=== PATIENT | female | born 1965 | race Caucasian/White ===

== ENCOUNTER 2016-06-26 12:34 | Emergency (ER) | payer BC ==
[2016-06-26 12:46] VITALS: TEMP 97.8; BMI 27.4
[2016-06-26] MEDS ORDERED: KETOROLAC TROMETHAMINE 30 MG/1 ML VIAL IVPUSH ONE (12:57)
[2016-06-26] MEDS ORDERED: SODIUM CHLORIDE 1,000 ML IV STA ×2 (12:57→15:13)
[2016-06-26] MEDS ORDERED: METOCLOPRAMIDE HCL INJECTION 10 MG/2 ML VIAL IVPB ONE (12:57)
--- NOTE | 2016-06-26 12:57 | PDOC ---
History of Present Illness <Faustino Winn - Last Filed: 06/26/16 14:21> - General History Source: Patient, Old Records Exam Limitations: No Limitations - History of Present Illness Initial Comments: 06/26/16 13:30 Ptient is a 50 y/o female with h/o chronic headaches, HTN and breast CA who presents to the ED with c/o worsening headaches since she was accidentally struck in the side of the headache with a football while at work 3 weeks ago. The patient states that she had no LOC at the time and did not seek medical attention. The headache started immediately after being struck and has increased in frequency. The patient came to the ED today because she took NSAIDs at home but there was no pain relief. She denies photophobia, change in vision or hearing. The aptient denies taking anti-platelet or anti-coagulant therapeutic medications. <Aileen Erickson - Last Filed: 06/26/16 16:45> - General Chief Complaint: Headache Stated Complaint: HEADACHE Time Seen by Provider: 06/26/16 12:36 Past History <Faustino Winn - Last Filed: 06/26/16 14:21> - Past Medical History Anemia: No Asthma: Yes (occasional) Cancer: Yes (BREAST -RIGHT) Cardiac Disorders: No CVA: No COPD: No CHF: No Dementia: No Diabetes: No GI Disorders: Yes (ACID REFLUX) Disorders: No HTN: Yes Hypercholesterolemia: No Liver Disease: No Seizures: No Thyroid Disease: No - Surgical History Abdominal Surgery: No Appendectomy: No Cardiac Surgery: No Cholecystectomy: No Lung Surgery: No Neurologic Surgery: No Orthopedic Surgery: No - Immunization History Immunization Up to Date: No - Psycho/Social/Smoking Cessation Hx Anxiety: No Suicidal Ideation: No Smoking History: Never smoked Have you smoked in the past 12 months: No Information on smoking cessation initiated: No Hx Alcohol Use: No Drug/Substance Use Hx: No Substance Use Type: None Hx Substance Use Treatment: No <Aileen Erickson - Last Filed: 06/26/16 16:45> - Past Medical History Allergies/Adverse Reactions: Allergies Allergy/AdvReac Type Severity Reaction Status Date / Time No Known Drug Allergies Allergy Verified 06/26/16 12:36 Home Medications: Ambulatory Orders Amlodipine Besylate [Norvasc -] 5 mg PO DAILY 07/13/14 Omeprazole [Prilosec] 20 mg PO DAILY 07/13/14 Valsartan [Diovan] 320 mg PO DAILY 07/13/14 Metformin HCl 1,000 mg PO DAILY 06/26/16 Review of Systems - Review of Systems Constitutional: No: Symptoms Reported HEENTM: No: Symptoms Reported Respiratory: No: Symptoms reported Cardiac (ROS): No: Symptoms Reported : No: Symptoms Reported Musculoskeletal: No: Symptoms Reported Integumentary: No: Symptoms Reported Neurological: Yes: Headache. No: Ataxia, Dizziness <Nora Ericksony - Last Filed: 06/26/16 16:45> *Physical Exam - Vital Signs Last Vital Signs Temp Pulse Resp BP Pulse Ox 97.8 F 85 18 158/85 98 06/26/16 12:35 06/26/16 12:35 06/26/16 12:35 06/26/16 12:35 06/26/16 12:35 <Faustino Winn - Last Filed: 06/26/16 14:21> - Vital Signs Last Vital Signs Temp Pulse Resp BP Pulse Ox 97.8 F 85 18 158/85 98 06/26/16 12:35 06/26/16 12:35 06/26/16 12:35 06/26/16 12:35 06/26/16 12:35 - Physical Exam Comments: 06/26/16 13:35 GENERAL: Well developed, well nourished. Awake and alert. No acute distress. HEENT: Normocephalic, atraumatic. PERRLA, EOMI. No conjunctival pallor. Sclera are non- icteric. Moist mucous membranes. Oropharynx is clear. NECK: Supple. Full ROM. No JVD. No lymphadenopathy. CARDIOVASCULAR: Regular rate and rhythm. No murmurs, rubs, or gallops. Distal pulses are 2+ and symmetric. PULMONARY: No evidence of respiratory distress. Lungs clear to auscultation bilaterally. No wheezing, rales or rhonchi. ABDOMINAL: Soft. Non-tender. Non-distended. No rebound or guarding. No organomegaly. Normoactive bowel sounds. MUSCULOSKELETAL Normal range of motion at all joints. No bony deformities or tenderness. No CVA tenderness. EXTREMITIES: No cyanosis. No clubbing. No edema. No calf tenderness. SKIN: Warm and dry. Normal capillary refill. No rashes. No jaundice. NEUROLOGICAL: Alert, awake, appropriate. Cranial nerves 2-12 intact. Grossly non-focal exam. Motor and sensory exams are normal. PSYCHIATRIC: Cooperative. Good eye contact. Appropriate mood and affect. <Aileen Erickson - Last Filed: 06/26/16 16:45> ED Treatment Course - LABORATORY CBC & Chemistry Diagram: 06/26/16 13:15 06/26/16 13:15 - ADDITIONAL ORDERS Additional order review: 06/26/16 13:15 RBC 4.70 MCV 88.1 MCHC 32.8 RDW 12.6 MPV 6.9 L Neutrophils % 67.0 Lymphocytes % 26.1 Monocytes % 5.1 Eosinophils % 1.4 Basophils % 0.4 - RADIOLOGY Radiograph Interpretation: 06/26/16 14:18 EXAM: Head CT INTERPRETED BY: Dr. Shah REVIEWED BY: Dr. Erickson IMPRESSION: No evidence of acute intracranial hemorrhage, edema, midline shift, mass effect, or skull fracture. There is no CT evidence of acute territorial infarction. - Medications Given in the ED: ED Medications Discontinued Medications Generic Name Dose Route Start Last Admin Trade Name Freq PRN Reason Stop Dose Admin Sodium Chloride 1,000 mls @ 1,000 mls/hr 06/26/16 12:57 06/26/16 13:22 Normal Saline - IV 06/26/16 13:56 1,000 mls/hr ASDIR STA Administration Ketorolac Tromethamine 30 mg 06/26/16 12:57 06/26/16 13:25 Toradol Injection - IVPUSH 06/26/16 12:58 30 mg ONCE ONE Administration Metoclopramide HCl 10 mg 06/26/16 12:57 06/26/16 13:29 Reglan Injection - IVPB 06/26/16 12:58 10 mg ONCE ONE Administration <Faustino Winn - Last Filed: 06/26/16 14:21> - LABORATORY CBC & Chemistry Diagram: 06/26/16 13:15 06/26/16 13:15 <Aileen Erickson - Last Filed: 06/26/16 16:45> Medical Decision Making - Medical Decision Making 06/26/16 13:35 50 y/o female with h/o HTN, breast CA and chronic headaches with c/o worsening headache after being struck in the head 3 weeks ago. DDx includes but is not limited to: TBI, concussion, post-concussive syndrome, migraines, mass lesion, dehydration, electrolyte abnormality, toxic/metabolic derangement. Plan: 1. Labs 2. CT head 3. Urine analysis 4. IVF for hydration 5. Pain management 6. Observe and re-evaluate 06/26/16 16:42 Addendum: The labs were reviewed and noted in the EMR. Of note her glucose was in the 300 range. I addressed this with the patient and she says that she is recently been diagnosed with diabetes and been started on metformin. This is information that she did not share with me when I took the initial history of present illness. I gave for IV fluid hydration and the patient is feeling improved. I have discussed the results of the lab studies as well as the negative head CT with the patient. I have advised the patient that she needs to follow-up with her primary care physician this week to get her diabetes medications adjusted. I've advised her that she may take NSAIDs as needed for the headaches and to return to the emergency department if her symptoms persist , worsen, or new symptoms arise. <Aileen Erickson - Last Filed: 06/26/16 16:45> *DC/Admit/Observation/Transfer <Faustino Winn - Last Filed: 06/26/16 14:21> - Discharge Dispostion Admit: No <Aileen Erickson - Last Filed: 06/26/16 16:45> Diagnosis at time of Disposition: Headache, Uncontrolled diabetes mellitus - Discharge Dispostion Disposition: HOME Condition at time of disposition: Stable - Patient Instructions Printed Discharge Instructions: DI for Headache, Type 2 Diabetes Additional Instructions: You have had a CAT scan of your head which is negative for any acute intracranial pathology. Of note, your glucose levels are elevated consistent with diabetes that is poorly controlled. Please see her primary care physician within the next 3 days for medication adjustment. Return to the emergency department if your symptoms persist, worsen, or new symptoms arise.
[2016-06-26] MEDS ORDERED: KETOROLAC TROMETHAMINE 30 MG/1 ML VIAL ONE (13:12)
[2016-06-26 13:47] LABS: BASOPHIL 0.4 % (0-2.0); EOSINOPHIL 1.4 % (0-4.5); MCH 28.9 pg (25.7-33.7); MCHC 32.8 g/dl (32.0-36.0); MEAN CELL VOLUME 88.1 fl (80-96); MEAN PLT VOLUME 6.9 fl (7.5-11.1); PLATELET COUNT 418 K/MM3 (134-434); RDW 12.6 % (11.6-15.6); WHITE BLOOD COUNT 7.8 K/mm3 (4.0-10.0)
[2016-06-26 14:02] LABS: CALCIUM 8.6 mg/dl (8.4-10.2); CREATININE 0.8 mg/dl (0.6-1.3); MAGNESIUM 1.7 mg/dL (1.8-2.4); PHOSPHOROUS 4.7 mg/dl (2.5-4.6)
[2016-06-26] MEDS ORDERED: HEMOQUE TEST 1 EACH EACH ONE ×2 (15:09→16:34)
[2016-06-26 16:49] VITALS: BP 147/88; PULSE 78
== END 2016-06-26 16:50 | disposition home or self-care (01) ==
LOC: FER 12:34 → SUPCPDRO 12:34 → FER 16:50
PROC: 3E0333Z Introduction of Anti-inflammatory into Peripheral Vein, Percutaneous Approach (ICD-10-PCS; principal; 2016-06-26)
PROC: 3E033GC Introduction of Other Therapeutic Substance into Peripheral Vein, Percutaneous Approach (ICD-10-PCS; 2016-06-26)
PROC: 3E0337Z Introduction of Electrolytic and Water Balance Substance into Peripheral Vein, Percutaneous Approach (ICD-10-PCS; 2016-06-26)
DX: E11.65 Type 2 diabetes mellitus with hyperglycemia (principal); R51 Headache; Z79.84 Long term (current) use of oral hypoglycemic drugs; I10 Essential (primary) hypertension; Z85.3 Personal history of malignant neoplasm of breast; K21.9 Gastro-esophageal reflux disease without esophagitis
CPT/HCPCS: 36415; 70450-TC; 80048; 83735; 84100; 85025; 99284-25

== ENCOUNTER 2017-03-30 07:03 | Day surgery (SDC) | payer BC ==
[2017-03-29 16:10] VITALS: BMI 27.4
[2017-03-30] MEDS ORDERED: SUCCINYLCHOLINE CHLORIDE 200 MG/10 ML VIAL ONE (09:28)
[2017-03-30] MEDS ORDERED: PROPOFOL 20 ML ONE ×4 (09:28→11:02)
[2017-03-30] MEDS ORDERED: MIDAZOLAM HCL 2 MG/2 ML SINGLE DOSE VIAL ONE (09:28)
[2017-03-30] MEDS ORDERED: LIDOCAINE HCL 1%, 10 MG/ML (20ML VIAL) ONE (09:49)
[2017-03-30] MEDS ORDERED: ONDANSETRON 4 MG/2 ML VIAL ONE (10:28)
[2017-03-30] MEDS ORDERED: ceFAZolin SODIUM 1 GM VIAL ONE (10:28)
[2017-03-30] MEDS ORDERED: ceFAZolin SODIUM 1 GM VIAL IVPB ONE (10:30)
[2017-03-30] MEDS ORDERED: LIDOCAINE 1% P/F 10 MG/ML VIAL INF ONE (10:35)
[2017-03-30] MEDS ORDERED: ONDANSETRON 4 MG/2 ML VIAL IVPUSH PRN (11:12)
[2017-03-30] MEDS ORDERED: oxyCODONE HCL 5 MG TABLET PO PRN (11:12)
[2017-03-30] MEDS ORDERED: LACTATED RINGERS SOLUTION 1,000 ML IV SCH (11:15)
--- NOTE | 2017-03-30 11:29 | OP ---
DATE OF OPERATION: 03/30/2017 PREOPERATIVE DIAGNOSIS: Left breast intraductal papilloma x2. POSTOPERATIVE DIAGNOSIS: Left breast intraductal papilloma x2. PROCEDURE: Left breast wide localized excision. SURGEON: Steffi Melendez MD ANESTHESIA: Local, IV sedation. ESTIMATED BLOOD LOSS: Minimal. COMPLICATIONS: None. This is a sterile procedure. INDICATIONS FOR PROCEDURE: Patient had presented to me with a screening mammogram that noted an abnormality in the left 7 o'clock location. On ultrasound, she had a nodule separate from this area. Both these areas were biopsied by the radiologist at Imaging and pathology on both showed an intraductal papilloma. My recommendation was an excision of this area. The procedure was discussed with her and she understood. PROCEDURE IN DETAIL: Patient brought to [facility]. Taken to the breast senior loss control specialist where a wire was used to localize the 2 clips in the lower inner left breast. She was then brought up to the operating room. After IV sedation and IV antibiotics, the left breast was prepped and draped in the usual sterile fashion. The area in the lower inner and retroareolar left breast was anesthetized with 1% lidocaine without epinephrine. A periareolar incision was made in the lower inner left breast and the wire was used as a guide to get down to the area of interest. This was excised en bloc and sent as a left breast excision of mass x2 for a specimen radiograph. The specimen radiograph showed both the clips and wire to be intact within the specimen. This was then sent to Pathology for permanent section. Hemostasis assured with electrocautery. The parenchyma was approximated with interrupted 2-0 Vicryl. Skin approximated with interrupted 3-0 Vicryl and running 4-0 Prolene. A sterile dressing with Tegaderm, 4 x4's applied. She tolerated procedure well. Was taken to recovery in good condition. Telma [id number]
[2017-03-30 13:12] VITALS: TEMP 98.4
[2017-03-30] MEDS ORDERED: oxyCODONE HCL 5 MG TABLET ONE (13:22)
[2017-03-30 14:55] VITALS: BP 152/83; PULSE 92
--- NOTE | 2017-04-05 10:30 | PATH ---
Surgical Pathology Report Patient Name: VENICE OLIVIA [facility]. Rec. #: [id number] /Age/Gender: 1965 (Age: 51) / F Account: [id number] Location: [facility] Taken: 03/30/2017 Received: 03/30/2017 Reported: 04/05/2017 Physicians: Steffi Melendez M.D. Specimen(s) Received LEFT BREAST EXCISION OF MASS X2 Clinical History Left breast intraductal papilloma 7:00 on needle biopsy Final Diagnosis LEFT BREAST, WIDE EXCISION WITH A WIRE LOCALIZATION: FOCAL ATYPICAL DUCTAL HYPERPLASIA (ADH) AND SCLEROSING ADENOSIS ARISING IN A BACKGROUND OF FIBROCYSTIC CHANGES INCLUDING USUAL DUCTAL HYPERPLASIA (UDH), STROMAL FIBROSIS, DUCTAL DILATATION, AND CYSTIC APOCRINE METAPLASIA. CHANGES CONSISTENT WITH PRIOR BIOPSY SITE PRESENT. NO DEFINITE RESIDUAL PAPILLOMA IDENTIFIED NEAR AREA OF BIOPSY SITE. NO CARCINOMA IDENTIFIED. Comment: Also see prior specimens [id number] and [id number]. Electronically Signed Can Buitrago M.D. Gross Description Received fresh on an AccuGrid labeled "left breast excision of mass," is a 5.0 x 4.0 x 2.1 cm irregular, unoriented portion of fibroadipose tissue with a needle localization wire present. There is no skin or nipple present. The specimen is inked black and serially sectioned. Sectioning reveals a meyer metallic biopsy clip surrounded by firm fibrous tissue. No definitive mass is identified. [employer] sections are sequentially submitted in 14 cassettes with the biopsy clip in cassette 8 (one bisected section each in cassettes 8/9, / and /13). Total formalin fixation time: Approximately 6 hours 03/30/201703/30/2017
== END 2017-03-30 14:59 | disposition home or self-care (01) ==
LOC: JASU-SURG 07:03
PROVIDERS: ATTEND Surgery
PROC: 0HBU3ZX Excision of Left Breast, Percutaneous Approach, Diagnostic (ICD-10-PCS; 2017-03-30)
PROC: 0HBU0ZX Excision of Left Breast, Open Approach, Diagnostic (ICD-10-PCS; principal; 2017-03-30 10:00)
DX: D24.2 Benign neoplasm of left breast (principal)
CPT/HCPCS: 19281; 88307-TC; 94760

== ENCOUNTER → 2018-06-24 | Day surgery (SDC) | payer BC ==
--- NOTE | 2018-06-25 13:51 | PATH ---
Cytology Non-Gynecological Report Patient Name: VENICE OLIVIA [facility]. Rec. #: [id number] /Age/Gender: 1965 (Age: 52) / F Account: [id number] Location: RADIOLOGY INTER Taken: 06/24/2018 Received: 06/24/2018 Reported: 06/25/2018 Physicians: Telma Machuca M.D. Specimen(s) Received THYROID FNA RIGHT Clinical History Right thyroid nodule, 1.93 x 1.73 x 1.72 cm Final Diagnosis THYROID, RIGHT, FINE NEEDLE ASPIRATION: UNSATISFACTORY FOR EVALUATION. BETHESDA CLASS I: CYSTIC THYROID LESION WITH MACROPHAGES. MANY MACROPHAGES IN A BACKGROUND OF THIN COLLOID PRESENT. NO FOLLICULAR CELL CLUSTERS IDENTIFIED. SEE COMMENT. Comment: The specimen has insufficient follicular cell clusters and/or colloid; and suboptimal for complete cytopathologic evaluation according to [facility] [place] System for Reporting Thyroid FNA. If the nodule has worrisome ultrasound imaging properties, suggest repeat FNA, as warranted. Electronically Signed Magui Dallas M.D. Gross Description Received are eight direct smears, four of which are air-dried and Diff-Quik stained, and four of which are alcohol fixed and Pap stained. Also received is 20 ml of bloody formalin from which one cellblock is prepared.
== END | disposition home or self-care (01) ==
LOC: JRADIR 09:09
PROVIDERS: ATTEND Internal Medicine Endocrinology, Diabetes & Metabolism
PROC: 0G9H3ZX Drainage of Right Thyroid Gland Lobe, Percutaneous Approach, Diagnostic (ICD-10-PCS; principal; 2018-06-24)
DX: E04.1 Nontoxic single thyroid nodule (principal)
CPT/HCPCS: 10005; 76942; 88173; 88305-TC

== ENCOUNTER 2018-07-25 17:04 | Emergency (ER) | payer BC ==
--- NOTE | 2018-07-25 17:05 | PDOC ---
History of Present Illness <Sharmin Vieira - Last Filed: 07/25/18 17:04> <Yimi Melchor - Last Filed: 07/25/18 19:00> - General Chief Complaint: Chest Pain Stated Complaint: HTN,CHEST PAIN, HEADACHE Time Seen by Provider: 07/25/18 17:04 Past History - Past Medical History Anemia: No Asthma: Yes (occasional) Cancer: Yes (BREAST -RIGHT) Cardiac Disorders: No CVA: No COPD: No CHF: No Dementia: No Diabetes: Yes GI Disorders: Yes (ACID REFLUX) Disorders: No HTN: Yes Hypercholesterolemia: No Liver Disease: No Seizures: No Thyroid Disease: No - Surgical History Abdominal Surgery: No Appendectomy: No Cardiac Surgery: No Cholecystectomy: No Lung Surgery: No Neurologic Surgery: No Orthopedic Surgery: No - Immunization History Immunization Up to Date: No - Suicide/Smoking/Psychosocial Hx Smoking History: Never smoked Have you smoked in the past 12 months: No Hx Alcohol Use: No Drug/Substance Use Hx: No Substance Use Type: None Hx Substance Use Treatment: No <Sharmin Vieira - Last Filed: 07/25/18 17:04> <Yimi Melchor - Last Filed: 07/25/18 19:00> - Past Medical History Allergies/Adverse Reactions: Allergies Allergy/AdvReac Type Severity Reaction Status Date / Time No Known Drug Allergies Allergy Verified 07/25/18 17:06 Home Medications: Ambulatory Orders Amlodipine Besylate [Norvasc -] 5 mg PO DAILY 07/13/14 Omeprazole [Prilosec] 40 mg PO DAILY 07/13/14 metFORMIN HCL [Metformin HCl] 1,000 mg PO BID 06/26/16 Valsartan/Hydrochlorothiazide [Valsartan-Hctz 320-25 mg Tab] 1 each PO DAILY 06/03 Semaglutide [Ozempic] 0.5 mg SQ TU 01/01/18 *Physical Exam - Vital Signs Last Vital Signs Temp Pulse Resp BP Pulse Ox 97.7 F 86 17 156/106 H 98 07/25/18 17:04 07/25/18 17:04 07/25/18 17:04 07/25/18 17:04 07/25/18 17:04 - Physical Exam Comments: 07/25/18 18:59 Constitutional: Awake, alert, oriented. No acute distress. Head: Normocephalic. Atraumatic Eyes: PERRL. EOMI. Conjunctivae are not pale. ENT: Mucous membranes are moist and intact. Posterior pharynx without exudates or erythema. Uvula midline. Neck: Supple. Full ROM. No lymphadenopathy. Cardiovascular: Regular rate. Regular rhythm. S1, S2 regular. Distal pulses are 2+ and symmetric. Pulmonary/Chest: No evidence of respiratory distress. Clear to auscultation bilaterally No wheezing, rales or rhonchi. Abdominal: Soft and non-distended. There is no tenderness. No rebound, guarding or rigidity. No organomegaly. No palpable masses. Good bowel sounds. Back: No CVA tenderness. Musculoskeletal: No edema. No cyanosis. No clubbing. Full range of motion in all extremities. Nocalf tenderness. Radial/pedal pulses are intact and 2+ bilaterally Skin: Skin is warm and dry. No petechiae. No purpura. Neurological: Alert and oriented to person, place, and time. Cranial nerves II -XII are grossly intact. Normal speech. Strength is grossly symmetric. No sensory deficits. Psychiatric: Good eye contact. Normal interaction, affect and behavior. <Yimi Melchor - Last Filed: 07/25/18 19:00> Moderate Sedation - Procedure Monitoring Vital Signs: Procedure Monitoring Vital Signs Temperature 97.7 F 07/25/18 17:04 Pulse Rate 86 07/25/18 17:04 Respiratory Rate 17 07/25/18 17:04 Blood Pressure 156/106 H 07/25/18 17:04 O2 Sat by Pulse Oximetry (%) 98 07/25/18 17:04 <Yimi Melchor - Last Filed: 07/25/18 19:00> ED Treatment Course - LABORATORY CBC & Chemistry Diagram: 07/25/18 17:43 07/25/18 17:43 - ADDITIONAL ORDERS Additional order review: Laboratory Results 07/25/18 07/25/18 17:43 17:43 Sodium 136 Potassium 3.5 Chloride 100 Carbon Dioxide 28 Anion Gap 8 BUN 18 Creatinine 0.6 Creat Clearance w eGFR > 60 Random Glucose 196 H Calcium 9.7 Total Bilirubin 0.5 AST 22 ALT 26 Alkaline Phosphatase 17 L Creatine Kinase 82 Troponin I < 0.03 Total Protein 6.9 Albumin 4.0 07/25/18 17:43 RBC 4.58 MCV 88.5 MCHC 32.8 RDW 13.6 MPV 7.1 L Neutrophils % 71.1 Lymphocytes % 20.4 Monocytes % 6.9 Eosinophils % 1.2 Basophils % 0.4 <Yimi Melchor - Last Filed: 07/25/18 19:00> Medical Decision Making - Medical Decision Making 07/25/18 18:58 CT head normal. Toradol helps with migraines. Endorsed to next shift for further evaluation and repeat Troponin. Dr. Zhang taking over. <Yimi Melchor - Last Filed: 07/25/18 19:00> *DC/Admit/Observation/Transfer <Sharmin Vieira - Last Filed: 07/25/18 17:04> <Yimi Melchor - Last Filed: 07/25/18 19:00> - Discharge Dispostion Condition at time of disposition: Stable
[2018-07-25 17:32] VITALS: TEMP 97.7; BMI 27.4
[2018-07-25 18:13] LABS: HEMATOCRIT 40.5 % (32.4-45.2); HEMOGLOBIN 13.3 GM/dl (10.7-15.3); RBC 4.58 M/mm3 (3.60-5.2); WHITE BLOOD COUNT 7.5 K/mm3 (4.0-10.8)
[2018-07-25 18:14] LABS: BASO % 0.4 % (0-2.0); EOS % 1.2 % (0-4.5); LYMPH % 20.4 % (8-40); MCH 29.1 pg (25.7-33.7); MCHC 32.8 g/dl (32.0-36.0); MEAN CELL VOLUME 88.5 fl (80-96); MEAN PLT VOLUME 7.1 fl (7.5-11.1); MONO % 6.9 % (3.8-10.2); NEUT % 71.1 % (42.8-82.8); PLATELET COUNT 466 K/MM3 (134-434); RDW 13.6 % (11.6-15.6)
[2018-07-25 18:26] LABS: ALK PHOS 17 U/L (45-117); ANION GAP 8 MMOL/L (8-16); BILIRUBIN,TOTAL 0.5 mg/dl (0.2-1); BLOOD UREA NITROGEN 18 mg/dl (7-18); CALCIUM 9.7 mg/dl (8.5-10); CHLORIDE 100 mmol/L (98-107); CO2 28 mmol/L (21-32); CREATININE 0.6 mg/dl (0.55-1.3); GLUCOSE,RANDOM 196 mg/dl (74-106); POTASSIUM 3.5 mmol/L (3.5-5.1); SGOT/AST 22 U/L (15-37); SGPT/ALT 26 U/L (13-61); SODIUM 136 mmol/L (136-145); TOT PROT 6.9 g/dl (6.4-8.2)
[2018-07-25] MEDS ORDERED: KETOROLAC TROMETHAMINE 30 MG/1 ML VIAL ONE (19:02)
[2018-07-25] MEDS ORDERED: KETOROLAC TROMETHAMINE 30 MG/1 ML VIAL IVPUSH ONE (19:04)
--- NOTE | 2018-07-25 23:09 | PDOC ---
*Physical Exam - Vital Signs Last Vital Signs Temp Pulse Resp BP Pulse Ox 97.7 F 86 17 156/106 H 98 07/25/18 17:04 07/25/18 19:49 07/25/18 17:04 07/25/18 17:04 07/25/18 19:49 - Physical Exam Comments: 07/25/18 23:07 Care received at 1900 Pt is pending tropx2 On my evaluation, is feeling much better, mild headache now and no more CP Trop neg Pt feels well, requests DC home I discussed the physical exam findings, ancillary test results and final diagnoses with the patient. I answered all of the patient's questions. The patient was satisfied with the care received and felt comfortable with the discharge plan and treatment plan. The patient will call their primary care physician within 24 hours to arrange follow-up and will return to the Emergency Department with any new, persistent or worsening symptoms. ED Treatment Course - LABORATORY CBC & Chemistry Diagram: 07/25/18 17:43 07/25/18 17:43 - ADDITIONAL ORDERS Additional order review: Laboratory Results 07/25/18 07/25/18 07/25/18 21:30 17:43 17:43 Sodium 136 Potassium 3.5 Chloride 100 Carbon Dioxide 28 Anion Gap 8 BUN 18 Creatinine 0.6 Creat Clearance w eGFR > 60 Random Glucose 196 H Calcium 9.7 Total Bilirubin 0.5 AST 22 ALT 26 Alkaline Phosphatase 17 L Creatine Kinase 82 Troponin I < 0.03 < 0.03 Total Protein 6.9 Albumin 4.0 07/25/18 17:43 RBC 4.58 MCV 88.5 MCHC 32.8 RDW 13.6 MPV 7.1 L Neutrophils % 71.1 Lymphocytes % 20.4 Monocytes % 6.9 Eosinophils % 1.2 Basophils % 0.4 - Medications Given in the ED: ED Medications Discontinued Medications Generic Name Dose Route Start Last Admin Trade Name Freq PRN Reason Stop Dose Admin Ketorolac Tromethamine 30 mg 07/25/18 19:04 07/25/18 19:06 Toradol Injection - IVPUSH 07/25/18 19:05 30 mg ONCE ONE Administration *DC/Admit/Observation/Transfer Diagnosis at time of Disposition: Chest pain - Discharge Dispostion Disposition: HOME Condition at time of disposition: Stable - Referrals - Patient Instructions Printed Discharge Instructions: DI for Chest Pain Additional Instructions: Follow up with your primary doctor within 1-2 days Return to the emergency department if you have any new, worsening, or concerning symptoms - Post Discharge Activity - Attestations Physician Attestion: 07/25/18 23:09 I, Dr. Myranda Zhang MD, attest that this document has been prepared under my direction and personally reviewed by me in its entirety. I further attest, that it accurately reflects all work, treatment, procedures and medical decision -making performed by me.
[2018-07-25 23:22] VITALS: BP 146/97; PULSE 88
--- NOTE | 2018-07-26 13:14 | EKG ---
Test Reason : Blood Pressure : / mmHG Vent. Rate : 089 BPM Atrial Rate : 089 BPM P-R Int : 170 ms QRS Dur : 088 ms QT Int : 364 ms P-R-T Axes : 058 065 012 degrees QTc Int : 442 ms NORMAL SINUS RHYTHM POSSIBLE LEFT ATRIAL ENLARGEMENT POSSIBLE INFERIOR INFARCT , AGE UNDETERMINED ABNORMAL ECG WHEN COMPARED WITH ECG OF 01-JAN-2018 18:15, NO SIGNIFICANT CHANGE WAS FOUND Confirmed by KATTY FOSTER, AKI ([id number] on 07/26/2018 1:14:07 PM Referred By: DR PAYTON Confirmed By:AKI ALANIZ MD
== END 2018-07-25 23:23 | disposition home or self-care (01) ==
LOC: FER 17:04
PROC: 3E0333Z Introduction of Anti-inflammatory into Peripheral Vein, Percutaneous Approach (ICD-10-PCS; principal; 2018-07-25)
DX: R07.9 Chest pain, unspecified (principal); I10 Essential (primary) hypertension; E11.9 Type 2 diabetes mellitus without complications; K21.9 Gastro-esophageal reflux disease without esophagitis; Z85.3 Personal history of malignant neoplasm of breast; Z79.84 Long term (current) use of oral hypoglycemic drugs
CPT/HCPCS: 36415; 70450-TC; 71045-TC-FY; 80053; 82550; 84484; 85025; 93005; 99285-25

== ENCOUNTER 2022-05-15 15:41 | Emergency (ER) | payer BC ==
[2022-05-15] MEDS ORDERED: SODIUM CHLORIDE 1,000 ML IV STA (15:54)
[2022-05-15] MEDS ORDERED: DALBAVANCIN HCL 1,500 MG in DEXTROSE 5%-WATER - 500 ML IVPB ONE (15:55)
[2022-05-15 16:03] VITALS: BP 155/95; PULSE 95; TEMP 98.5; BMI 26.3
[2022-05-15 17:15] LABS: HEMATOCRIT 37.6 % (32.4-45.2); HEMOGLOBIN 12.4 G/dL (10.7-15.3); MCH 27.9 pg (25.7-33.7); MEAN CELL VOLUME 84.5 fl (80-96); PLATELET COUNT 443.5 10^3/uL (134-434); RBC 4.45 10^6/uL (3.60-5.2); RDW 15.8 % (11.6-15.6); WHITE BLOOD COUNT 11.9 10^3/uL (4.0-10.8)
[2022-05-15 17:33] LABS: ALBUMIN 3.7 g/dl (3.4-5.0); BILIRUBIN,TOTAL 0.5 mg/dl (0.2-1); CREATININE 0.8 mg/dl (0.55-1.3); TOT PROT 7.2 g/dl (6.4-8.2)
[2022-05-15 18:24] LABS: PLATELET ESTIMATE SLT INCREASE
[2022-05-15 18:29] VITALS: RESP 20
[2022-05-15] MEDS ORDERED: KETOROLAC TROMETHAMINE 30 MG/1 ML VIAL IVPUSH ONE (19:47)
[2022-05-15] MEDS ORDERED: KETOROLAC TROMETHAMINE 30 MG/1 ML VIAL ONE (19:49)
== END 2022-05-15 19:57 | disposition home or self-care (01) ==
LOC: FER 15:41
PROC: 3E0333Z Introduction of Anti-inflammatory into Peripheral Vein, Percutaneous Approach (ICD-10-PCS; principal; 2022-05-15)
PROC: 3E0333Z Introduction of Anti-inflammatory into Peripheral Vein, Percutaneous Approach (ICD-10-PCS; 2022-05-15)
PROC: 3E0337Z Introduction of Electrolytic and Water Balance Substance into Peripheral Vein, Percutaneous Approach (ICD-10-PCS; 2022-05-15)
DX: L03.114 Cellulitis of left upper limb (principal); R10.32 Left lower quadrant pain
CPT/HCPCS: 36415; 74177-TC; 80053; 81003; 81015; 85027; 96361; 96374; 96375; 99285-25; J0875; Q9967

== ENCOUNTER 2022-05-17 15:29 | Emergency (ER) | payer BC ==
[2022-05-17 15:53] VITALS: BP 157/101; PULSE 87; RESP 18; TEMP 98.4; BMI 27.4
[2022-05-17 16:54] LABS: HEMATOCRIT 34.8 % (32.4-45.2); HEMOGLOBIN 11.9 G/dL (10.7-15.3); MCH 28.5 pg (25.7-33.7); MCHC 34.2 g/dl (32.0-36.0); MEAN CELL VOLUME 83.5 fl (80-96); MEAN PLT VOLUME 6.9 fl (7.5-11.1); PLATELET COUNT 462.8 10^3/uL (134-434); RBC 4.17 10^6/uL (3.60-5.2); RDW 15.6 % (11.6-15.6); WHITE BLOOD COUNT 8.7 10^3/uL (4.0-10.8)
[2022-05-17 16:58] LABS: ALBUMIN 3.9 g/dl (3.4-5.0); BILIRUBIN,TOTAL 0.6 mg/dl (0.2-1); CALCIUM 9.1 mg/dl (8.5-10); CREATININE 0.8 mg/dl (0.55-1.3); TOT PROT 7.7 g/dl (6.4-8.2)
[2022-05-17 17:23] LABS: ERYTHROCYTE SEDIMENTATION RATE 86 mm/hr (0-30)
[2022-05-17 18:01] LABS: PLATELET ESTIMATE SLT INCREASE
== END 2022-05-17 17:37 | disposition home or self-care (01) ==
LOC: FER 15:29
DX: L03.114 Cellulitis of left upper limb (principal)
CPT/HCPCS: 36415; 73090-TC-RT-FY; 73552-TC-LT-FY; 80053; 85027; 85651; 86140; 99284-25

== ENCOUNTER 2022-06-01 15:35 | Emergency (ER) | payer BC ==
[2022-06-01 15:53] VITALS: BP 141/91; PULSE 93; RESP 18; TEMP 98; BMI 26.2
== END 2022-06-01 17:05 | disposition home or self-care (01) ==
LOC: FER 15:35
PROC: 0H9EXZZ Drainage of Left Lower Arm Skin, External Approach (ICD-10-PCS; principal; 2022-06-01)
DX: L02.414 Cutaneous abscess of left upper limb (principal)
CPT/HCPCS: 99283-25

== ENCOUNTER 2023-01-15 22:05 | Emergency (ER) | payer BC ==
[2023-01-15 22:17] VITALS: RESP 16; TEMP 98; BMI 26.5
[2023-01-16] MEDS ORDERED: ACETAMINOPHEN 500 MG TABLET (FP) ONE (01:38)
[2023-01-16] MEDS ORDERED: ACETAMINOPHEN 500 MG TABLET (FP) PO ONE (01:44)
[2023-01-16 06:20] VITALS: BP 152/98; PULSE 82
== END 2023-01-16 11:09 | disposition home or self-care (01) ==
LOC: FER 22:05
DX: I10 Essential (primary) hypertension (principal); R51.9 Headache, unspecified
CPT/HCPCS: 70450-TC; 93005; 99284-25

== ENCOUNTER 2023-06-20 11:10 | Observation (INO) | payer BC ==
[2023-06-20 11:29] VITALS: BMI 25.2
[2023-06-20 12:07] LABS: INR 1.03 (0.83-1.09); PROTHROMBIN TIME (PATIENT) 11.9 SEC (9.7-13.0)
[2023-06-20 12:09] LABS: ACTIVATED PTT 29.5 SECONDS (25.2-36.5)
[2023-06-20 12:16] LABS: BILIRUBIN,TOTAL 0.3 mg/dl (0.2-1); CALCIUM 8.7 mg/dl (8.5-10.1); HEMATOCRIT 32.2 % (32.4-45.2); HEMOGLOBIN 10.2 G/dL (10.7-15.3); MCH 26.1 pg (25.7-33.7); MCHC 31.6 g/dl (32.0-36.0); MEAN CELL VOLUME 82.6 fl (80-96); MEAN PLT VOLUME 8.1 fl (7.5-11.1); PLATELET COUNT 423.3 10^3/uL (134-434); POTASSIUM 3.8 mmol/L (3.5-5.1); RDW 16.8 % (11.6-15.6); TOT PROT 6.5 g/dl (6.4-8.2); WHITE BLOOD COUNT 10.9 10^3/uL (4.0-10.8)
[2023-06-20 12:54] LABS: PLATELET ESTIMATE ADEQUATE
[2023-06-20] MEDS ORDERED: ASPIRIN 81 MG CHEWABLE TABLETS PO ONE (13:38)
[2023-06-20] MEDS ORDERED: ASPIRIN 81 MG CHEWABLE TABLETS ONE (13:50)
[2023-06-20 14:44] LABS: N-TERMINAL BNP 1384.4 pg/ml (5-125)
[2023-06-20] MEDS ORDERED: FUROSEMIDE 40 MG/4 ML INJECTABLE VIAL IVPUSH ONE (15:10)
[2023-06-20] MEDS ORDERED: FUROSEMIDE 40 MG/4 ML INJECTABLE VIAL ONE (15:12)
[2023-06-20] MEDS ORDERED: metFORMIN HCL 500 MG TABLET (FP) PO ONE (20:11)
[2023-06-20] MEDS ORDERED: metFORMIN HCL 500 MG TABLET (FP) ONE (20:32)
[2023-06-21] MEDS ORDERED: metFORMIN HCL 500 MG TABLET (FP) PO SCH (07:00)
[2023-06-21] MEDS ORDERED: metFORMIN HCL 500 MG TABLET (FP) ONE (07:22)
[2023-06-21 08:22] LABS: HEMATOCRIT 32.1 % (32.4-45.2); HEMOGLOBIN 10.2 G/dL (10.7-15.3); MCH 25.9 pg (25.7-33.7); MCHC 31.7 g/dl (32.0-36.0); MEAN CELL VOLUME 81.7 fl (80-96); PLATELET COUNT 541.3 10^3/uL (134-434); RBC 3.93 10^6/uL (3.60-5.2); RDW 16.3 % (11.6-15.6); WHITE BLOOD COUNT 9.5 10^3/uL (4.0-10.8)
[2023-06-21 08:59] LABS: ALBUMIN 4.2 g/dl (3.4-5.0); BILIRUBIN,TOTAL 0.4 mg/dl (0.2-1); CALCIUM 9.2 mg/dl (8.5-10.1); POTASSIUM 4.1 mmol/L (3.5-5.1); TOT PROT 6.9 g/dl (6.4-8.2)
[2023-06-21 09:22] LABS: PLATELET ESTIMATE SLT INCREASE
[2023-06-21] MEDS: SPIRONOLACTONE 25 MG TABLET PO SCH ×2 (09:25→21:38)
[2023-06-21] MEDS: ASPIRIN 81 MG CHEWABLE TABLETS PO SCH (09:25)
[2023-06-21] MEDS: PANTOPRAZOLE 40 MG TABLET PO SCH (09:25)
[2023-06-21] MEDS: HEPARIN NA (PORCINE) 5,000 UNITS/ML 1ML VIAL SQ SCH ×2 (09:25→21:38)
[2023-06-21] MEDS: VALSARTAN 160 MG TABLET PO SCH (09:25)
[2023-06-21] MEDS ORDERED: HYDROCHLOROTHIAZIDE 25 MG TABLET (FP) PO SCH (11:00)
[2023-06-21] MEDS ORDERED: SODIUM CHLORIDE 0.9% 250 ML INFUS.BAG IV ONE (12:30)
[2023-06-21] MEDS ORDERED: amLODIPine BESYLATE 2.5 MG TABLET (FP) PO ONE (22:30)
[2023-06-22] MEDS: SPIRONOLACTONE 25 MG TABLET PO SCH ×3 (06:36→21:09)
[2023-06-22 07:44] LABS: BASO % 0.6 % (0-2.0); EOS % 0.8 % (0-4.5); HEMOGLOBIN 9.8 GM/dL (10.7-15.3); LYMPH % 15.6 % (8-40); MCH 26.1 pg (25.7-33.7); MCHC 32.7 g/dl (32.0-36.0); MEAN CELL VOLUME 79.8 fl (80-96); MEAN PLT VOLUME 6.6 fl (7.5-11.1); MONO % 6.9 % (3.8-10.2); NEUT % 76.1 % (42.8-82.8); PLATELET COUNT 563 10^3/uL (134-434); RBC 3.76 M/mm3 (3.60-5.2); RDW 15.7 % (11.6-15.6); WHITE BLOOD COUNT 9.1 K/mm3 (4.0-10.0)
[2023-06-22] MEDS: VALSARTAN 160 MG TABLET PO SCH (09:15)
[2023-06-22] MEDS: HEPARIN NA (PORCINE) 5,000 UNITS/ML 1ML VIAL SQ SCH ×2 (09:15→21:09)
[2023-06-22] MEDS: PANTOPRAZOLE 40 MG TABLET PO SCH (09:15)
[2023-06-22] MEDS: ASPIRIN 81 MG CHEWABLE TABLETS PO SCH (09:15)
[2023-06-22] MEDS ORDERED: amLODIPine BESYLATE 2.5 MG TABLET (FP) PO SCH (10:00)
[2023-06-22] MEDS ORDERED: NIFEdipine E.R. 30 MG TABLET PO SCH (15:00)
[2023-06-22 16:40] LABS: ALBUMIN 3.2 g/dl (3.4-5.0); BILIRUBIN,TOTAL 0.2 mg/dL (0.2-1); BLOOD UREA NITROGEN 27.6 mg/dL (7-18); CALCIUM 8.8 mg/dL (8.5-10.1); CREATININE 1.1 mg/dL (0.55-1.3); POTASSIUM 3.9 mmol/L (3.5-5.1); TOT PROT 6.6 g/dl (6.4-8.2)
[2023-06-22] MEDS: INSULIN (LEVEMIR) 100 UNITS/ML UNITS SQ SCH (22:23)
[2023-06-22] MEDS ORDERED: ACETAMINOPHEN 1000 MG/100 ML BAG IVPB ONE (23:30)
[2023-06-23] MEDS ORDERED: hydrALAZINE HCL 20 MG/ML VIAL IVPUSH ONE (05:23)
[2023-06-23] MEDS ORDERED: VALSARTAN 160 MG TABLET PO ONE (06:56)
[2023-06-23] MEDS ORDERED: ACETAMINOPHEN/CAFFEINE/BUTALBITAL 1 TAB PO ONE (06:57)
[2023-06-23] MEDS: INSULIN ASPART SLIDING SCALE (NOVOLOG) 1 VIAL SQ SCH ×3 (07:06→17:15)
[2023-06-23 07:18] LABS: HEMATOCRIT 37.4 % (32.4-45.2); MCH 25.5 pg (25.7-33.7); MCHC 32.1 g/dl (32.0-36.0); MEAN CELL VOLUME 79.3 fl (80-96); MEAN PLT VOLUME 6.6 fl (7.5-11.1); PLATELET COUNT 708 10^3/uL (134-434); RBC 4.72 M/mm3 (3.60-5.2); RDW 16.1 % (11.6-15.6); WHITE BLOOD COUNT 9.4 K/mm3 (4.0-10.0)
[2023-06-23 07:47] LABS: POTASSIUM 3.8 mmol/L (3.5-5.1)
[2023-06-23 07:50] LABS: BLOOD UREA NITROGEN 28.4 mg/dL (7-18)
[2023-06-23 07:53] LABS: CREATININE 1.1 mg/dL (0.55-1.3); PHOSPHOROUS 6.2 mg/dL (2.5-4.9)
[2023-06-23 07:54] LABS: TOT PROT 7.8 g/dl (6.4-8.2)
[2023-06-23 07:55] LABS: BILIRUBIN,TOTAL 0.3 mg/dL (0.2-1)
[2023-06-23 07:58] LABS: CALCIUM 10.5 mg/dL (8.5-10.1)
[2023-06-23] MEDS: NIFEdipine E.R 60 MG TABLET PO SCH (09:43)
[2023-06-23] MEDS: PANTOPRAZOLE 40 MG TABLET PO SCH (09:43)
[2023-06-23] MEDS: HEPARIN NA (PORCINE) 5,000 UNITS/ML 1ML VIAL SQ SCH ×2 (09:43→21:16)
[2023-06-23] MEDS: SPIRONOLACTONE 25 MG TABLET PO SCH ×2 (09:43→21:16)
[2023-06-23] MEDS: ASPIRIN 81 MG CHEWABLE TABLETS PO SCH (09:43)
[2023-06-23] MEDS: ACETAMINOPHEN 1000 MG/100 ML BAG IVPB PRN ×2 (15:01→22:45)
[2023-06-23] MEDS: INSULIN (LEVEMIR) 100 UNITS/ML UNITS SQ SCH (21:21)
[2023-06-24] MEDS ORDERED: ACETAMINOPHEN 500 MG TABLET (FP) PO ONE (02:57)
[2023-06-24] MEDS: INSULIN ASPART SLIDING SCALE (NOVOLOG) 1 VIAL SQ SCH ×3 (06:36→16:51)
[2023-06-24 07:27] LABS: BASO % 0.9 % (0-2.0); EOS % 0.7 % (0-4.5); HEMATOCRIT 35.5 % (32.4-45.2); HEMOGLOBIN 11.2 GM/dL (10.7-15.3); MCH 25.3 pg (25.7-33.7); MCHC 31.5 g/dl (32.0-36.0); MEAN CELL VOLUME 80.2 fl (80-96); MEAN PLT VOLUME 6.6 fl (7.5-11.1); MONO % 7.5 % (3.8-10.2); NEUT % 72.9 % (42.8-82.8); PLATELET COUNT 660 10^3/uL (134-434); RBC 4.43 M/mm3 (3.60-5.2); RDW 16.2 % (11.6-15.6); WHITE BLOOD COUNT 9.8 K/mm3 (4.0-10.0)
[2023-06-24 07:45] LABS: POTASSIUM 4.3 mmol/L (3.5-5.1)
[2023-06-24 07:55] LABS: BLOOD UREA NITROGEN 29.7 mg/dL (7-18)
[2023-06-24 07:56] LABS: ALBUMIN 3.4 g/dl (3.4-5.0); MAGNESIUM 2.1 mg/dL (1.8-2.4)
[2023-06-24 07:59] LABS: CREATININE 1.1 mg/dL (0.55-1.3)
[2023-06-24 08:00] LABS: BILIRUBIN,TOTAL 0.2 mg/dL (0.2-1)
[2023-06-24 08:12] LABS: CALCIUM 9.1 mg/dL (8.5-10.1)
[2023-06-24] MEDS: SPIRONOLACTONE 25 MG TABLET PO SCH ×2 (09:16→21:47)
[2023-06-24] MEDS: VALSARTAN 160 MG TABLET PO SCH (09:16)
[2023-06-24] MEDS: ASPIRIN 81 MG CHEWABLE TABLETS PO SCH (09:16)
[2023-06-24] MEDS: PANTOPRAZOLE 40 MG TABLET PO SCH (09:17)
[2023-06-24] MEDS: NIFEdipine E.R 60 MG TABLET PO SCH (09:17)
[2023-06-24] MEDS: HEPARIN NA (PORCINE) 5,000 UNITS/ML 1ML VIAL SQ SCH ×2 (09:17→21:47)
[2023-06-24] MEDS ORDERED: ACETAMINOPHEN 325 MG TABLET (FP) PO PRN (16:25)
[2023-06-24] MEDS ORDERED: CARVEDILOL 6.25 MG TABLET (FP) PO ONE (16:27)
[2023-06-24] MEDS: INSULIN (LEVEMIR) 100 UNITS/ML UNITS SQ SCH (21:47)
[2023-06-24] MEDS ORDERED: CARVEDILOL 6.25 MG TABLET (FP) PO SCH (22:00)
[2023-06-25] MEDS: INSULIN ASPART SLIDING SCALE (NOVOLOG) 1 VIAL SQ SCH ×3 (06:25→18:50)
[2023-06-25 07:41] LABS: HEMATOCRIT 32.7 % (32.4-45.2); HEMOGLOBIN 10.3 GM/dL (10.7-15.3); MCH 25.6 pg (25.7-33.7); MCHC 31.7 g/dl (32.0-36.0); MEAN CELL VOLUME 80.8 fl (80-96); MEAN PLT VOLUME 6.6 fl (7.5-11.1); PLATELET COUNT 647 10^3/uL (134-434); RBC 4.04 M/mm3 (3.60-5.2); RDW 15.8 % (11.6-15.6); WHITE BLOOD COUNT 8.8 K/mm3 (4.0-10.0)
[2023-06-25 08:00] LABS: POTASSIUM 4.5 mmol/L (3.5-5.1)
[2023-06-25 08:02] LABS: BLOOD UREA NITROGEN 48.2 mg/dL (7-18); CALCIUM 9.2 mg/dL (8.5-10.1); MAGNESIUM 2.3 mg/dL (1.8-2.4)
[2023-06-25 08:05] LABS: PHOSPHOROUS 5.5 mg/dL (2.5-4.9)
[2023-06-25 08:06] LABS: CREATININE 1.4 mg/dL (0.55-1.3)
[2023-06-25] MEDS: NIFEdipine E.R 60 MG TABLET PO SCH ×2 (08:28→11:09)
[2023-06-25] MEDS: VALSARTAN 160 MG TABLET PO SCH ×2 (08:28→11:09)
[2023-06-25] MEDS: ASPIRIN 81 MG CHEWABLE TABLETS PO SCH (11:00)
[2023-06-25] MEDS: PANTOPRAZOLE 40 MG TABLET PO SCH (11:00)
[2023-06-25] MEDS: SPIRONOLACTONE 25 MG TABLET PO SCH (11:00)
[2023-06-25] MEDS: HEPARIN NA (PORCINE) 5,000 UNITS/ML 1ML VIAL SQ SCH (11:00)
[2023-06-25 16:04] LABS: POTASSIUM 4.5 mmol/L (3.5-5.1)
[2023-06-25 16:05] LABS: BLOOD UREA NITROGEN 49.7 mg/dL (7-18)
[2023-06-25 16:09] LABS: CREATININE 1.4 mg/dL (0.55-1.3)
[2023-06-25 18:20] VITALS: BP 141/84; PULSE 93; RESP 18; TEMP 98.5
== END 2023-06-25 18:52 | disposition home or self-care (01) ==
LOC: FER 11:10 → FM/S 14:01 → J4W 06-21 15:46
PROVIDERS: ADMIT Internal Medicine; ATTEND Internal Medicine
PROC: 3E033NZ Introduction of Analgesics, Hypnotics, Sedatives into Peripheral Vein, Percutaneous Approach (ICD-10-PCS; principal; 2023-06-20)
PROC: 3E033GC Introduction of Other Therapeutic Substance into Peripheral Vein, Percutaneous Approach (ICD-10-PCS; 2023-06-20)
PROC: 3E023GC Introduction of Other Therapeutic Substance into Muscle, Percutaneous Approach (ICD-10-PCS; 2023-06-20)
PROC: 3E013VG Introduction of Insulin into Subcutaneous Tissue, Percutaneous Approach (ICD-10-PCS; 2023-06-20)
DX: N17.9 Acute kidney failure, unspecified (principal); I24.9 Acute ischemic heart disease, unspecified; I16.0 Hypertensive urgency; I50.9 Heart failure, unspecified; I11.0 Hypertensive heart disease with heart failure; K21.9 Gastro-esophageal reflux disease without esophagitis; E11.9 Type 2 diabetes mellitus without complications; E24.0 Pituitary-dependent Cushing's disease; R79.9 Abnormal finding of blood chemistry, unspecified; R51.9 Headache, unspecified; R60.9 Edema, unspecified; Z85.3 Personal history of malignant neoplasm of breast
CPT/HCPCS: 36415; 70450-TC; 71045-TC-FY; 71275-TC; 74174-TC; 80048; 80053; 82533; 82550; 82962; 83735; 83880; 84100; 84484; 85025; 85027; 85610; 85730; 93005; 93306-TC; 93351; 99285-25; G0378; J1644; Q9967